=== PATIENT | female | born 2000 | race African-American/Black ===

== ENCOUNTER 2023-01-17 19:00 | Emergency (ER) | payer MEDICAID, SELFPAY ==
[2023-01-17 19:04] VITALS: BP 127/86; PULSE 66; O2SAT 100
[2023-01-17 19:07] VITALS: BP 118/58; PULSE 55; RESP 16; TEMP 37; O2SAT 99; BMI 28.2
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
[2023-01-17] MEDS: Ibuprofen 600 MG TABLET PO (20:56)
== END 2023-01-17 21:06 | disposition home or self-care (01) ==
PROVIDERS: Emergency Provider Emergency Medicine
DX: Z04.1 Encounter for examination and observation following transport accident (principal); M79.10 Myalgia, unspecified site
CPT/HCPCS: 99283; 99284